=== PATIENT | male | born 2000 ===

== ENCOUNTER 2022-05-15 17:06 | Emergency (ER) | payer SELFPAY ==
[2022-05-15] MEDS ORDERED: traMADol 50 MG TAB PO ONE (22:29)
[2022-05-15] MEDS ORDERED: TETANUS,DIPH,PERTUSS(ACELL) VACCINE 0.5 ML SYRINGE IM ONE (22:29)
[2022-05-15] MEDS ORDERED: cephALEXin 500 MG CAP PO ONE (22:29)
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
[2022-05-15] MEDS ORDERED: HYDROcodone/ACETAMINOPHEN 5-325 MG TAB PO ONE (23:35)
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
[2022-05-16 00:59] VITALS: BP 134/84
== END 2022-05-16 00:59 | disposition home or self-care (01) ==
LOC: ED 17:06
DX: S60.511A Abrasion of right hand, initial encounter (principal); M25.521 Pain in right elbow; M25.511 Pain in right shoulder; V89.2XXA Person injured in unspecified motor-vehicle accident, traffic, initial encounter; Y93.89 Activity, other specified; Y92.89 Other specified places as the place of occurrence of the external cause; Y99.8 Other external cause status
CPT/HCPCS: 90471; 90715; 99283